=== PATIENT | female | born 1985 | race Caucasian/White ===

== ENCOUNTER 2017-12-22 08:08 | Emergency (ER) | payer SELFPAY ==
[~2017-12-22] VITALS: Ht 157.5 cm; Wt 56.0 kg
[~2017-12-22 08:08] MED LIST: OXYC1SOL5 PO; PRENCAP10 PO
[2017-12-22 08:17] VITALS: BP 122/65; PULSE 66; RESP 16; TEMP 98.2; O2SAT 100
[2017-12-22 08:33] VITALS: BP 133/77; PULSE 70; RESP 17; TEMP 98.5; O2SAT 100
[2017-12-22] MEDS ORDERED: SODIUM CHLORIDE 0.9% FLUSH 10 ML FLUSH IVF PRN (09:00)
[2017-12-22] MEDS ORDERED: ONDANSETRON HCL 4 MG/2 ML VIAL IVP ONE (09:00)
[2017-12-22] MEDS ORDERED: SODIUM CHLOR 0.9% 1000 ML INJ 1,000 ML IV ONE (09:00)
[2017-12-22] MEDS ORDERED: MECLIZINE HCL 25 MG TAB PO ONE (09:00)
[2017-12-22 09:20] VITALS: BP 133/77; PULSE 73; RESP 17; TEMP 98.5; O2SAT 100
--- NOTE | 2017-12-22 09:46 | RADRPT ---
EXAM DATE/TIME: 12/22/2017 09:18 [facility] COMPARISON: No previous studies available for comparison. INDICATIONS : Palpitations. MEDICAL HISTORY : None. SURGICAL HISTORY : None. ENCOUNTER: Initial ACUITY: 2 days PAIN SCORE: 0/10 LOCATION: Bilateral chest FINDINGS: A single view of the chest demonstrates the lungs to be symmetrically aerated without evidence of mas s, infiltrate or effusion. The cardiomediastinal contours are unremarkable. Osseous structures are intact. CONCLUSION: No evidence of acute cardiopulmonary disease. Justin Werner MD on December 22, 2017 at 9:44 Board Certified Radiologist. This report was verified electronically.
[2017-12-22 10:04] LABS: AUTOMATED NEUTROPHIL # 3.4 TH/MM3 (1.8-7.7); BASOPHIL # 0.1 TH/MM3 (0-0.2); BASOPHIL % 1.1 % (0.0-2.0); EOSINOPHIL # 0.1 TH/MM3 (0-0.4); EOSINOPHIL % 1.2 % (0.0-4.0); HEMATOCRIT 42.1 % (35.0-46.0); LYMPH % 24.2 % (9.0-44.0); LYMPHOCYTE # 1.3 TH/MM3 (1.0-4.8); MEAN CELL VOLUME 88.7 FL (80.0-100.0); MEAN CORPUSCULAR HEMOGLOBIN 29.6 PG (27.0-34.0); MEAN CORPUSCULAR HGB CONC 33.3 % (32.0-36.0); MEAN PLATELET VOLUME 9.7 FL (7.0-11.0); MONO % 8.1 % (0.0-8.0); MONOCYTE # 0.4 TH/MM3 (0-0.9); NEUT % 65.4 % (16.0-70.0); PLATELET COUNT 232 TH/MM3 (150-450); RED BLOOD COUNT 4.74 MIL/MM3 (4.00-5.30); RED CELL DISTRIBUTION WIDTH 13.7 % (11.6-17.2); WHITE BLOOD COUNT 5.2 TH/MM3 (4.0-11.0)
[2017-12-22 10:16] LABS: ALBUMIN 4.3 GM/DL (3.4-5.0); AST (GOT) 17 U/L (15-37); BICARBONATE 25.2 MEQ/L (21.0-32.0); BLOOD UREA NITROGEN 11 MG/DL (7-18); CHLORIDE 105 MEQ/L (98-107); CREATININE 0.79 MG/DL (0.50-1.00); GLOMERULAR FILTRATION RATE 84 ML/MIN (>89); GLUCOSE,RANDOM 109 MG/DL (74-106); SODIUM (NA) 139 MEQ/L (136-145)
[2017-12-22 10:17] LABS: ALT (GPT) 28 U/L (10-53); INTERNATIONAL NORMALIZED RATIO 1.1 RATIO; PROTHROMBIN TIME - PATIENT 10.9 SEC (9.8-11.6)
[2017-12-22 10:21] LABS: ALKALINE PHOSPHATASE 39 U/L (45-117); TOTAL BILIRUBIN ADULT 0.7 MG/DL (0.2-1.0); TOTAL PROTEIN 7.8 GM/DL (6.4-8.2); TROPONIN I LESS THAN 0.02 NG/ML (0.02-0.05)
[2017-12-22] MEDS ORDERED: IOHEXOL 350 MG/ML 10 ML VIAL (for RAD DIAG) IVCONTRAST ONE (10:22)
--- NOTE | 2017-12-22 10:59 | RADRPT ---
EXAM DATE/TIME: 12/22/2017 10:13 [facility] COMPARISON: No previous studies available for comparison. INDICATIONS : Dizzy for 2 weeks, prior history of vertigo RADIATION DOSE: 56.35 CTDIvol (mGy) MEDICAL HISTORY : None SURGICAL HISTORY : None. ENCOUNTER: Initial ACUITY: 2 weeks PAIN SCALE: 0/10 LOCATION: cranial TECHNIQUE: Multiple contiguous axial images were obtained of the head. Using automated exposure control and adj ustment of the mA and/or kV according to patient size, radiation dose was kept as low as reasonably a chievable to obtain optimal diagnostic quality images. DICOM format image data is available electro nically for review and comparison. FINDINGS: CEREBRUM: The ventricles are normal for age. No evidence of midline shift, mass lesion, hemorrhage or acute in farction. No extra-axial fluid collections are seen. POSTERIOR FOSSA: The cerebellum and brainstem are intact. The 4th ventricle is midline. The cerebellopontine angle i s unremarkable. EXTRACRANIAL: The visualized portion of the orbits is intact. SKULL: The calvaria is intact. No evidence of skull fracture. CONCLUSION: 1. No acute intracranial abnormality identified. Toñito Nieves MD on December 22, 2017 at 10:55 Board Certified Radiologist. This report was verified electronically.
--- NOTE | 2017-12-22 11:26 | RADRPT ---
EXAM DATE/TIME: 12/22/2017 10:13 [facility] COMPARISON: No previous studies available for comparison. INDICATIONS : Dizziness for 2 weeks, history of vertigo IV CONTRAST: 99 cc Omnipaque 350 (iohexol) IV ; Cumulative dose for multiple exams. RADIATION DOSE: 8.35 CTDIvol (mGy) ; Combined studies MEDICAL HISTORY : None SURGICAL HISTORY : None. ENCOUNTER: Initial ACUITY: 2 weeks PAIN SCALE: 0/10 LOCATION: cranial TECHNIQUE: Volumetric scanning was performed using a multi-row detector CT scanner. The data was post processed with a variety of visualization algorithms including full volume maximum intensity projection, multi -planar sliding thin slab reformation, curved planar reformation, and surface rendering techniques. Using automated exposure control and adjustment of the mA and/or kV according to patient size, radiat ion dose was kept as low as reasonably achievable to obtain optimal diagnostic quality images. DICO M format image data is available electronically for review and comparison. FINDINGS: There is excellent visualization of the major intracranial arteries out to the second-order branch ve ssels. There is no evidence for aneurysm, vessel truncation or stenosis, and no evidence for vascula r malformation. CONCLUSION: 1. Negative examination. Toñito Nieves MD on December 22, 2017 at 11:20 Board Certified Radiologist. This report was verified electronically.
[2017-12-22] MEDS ORDERED: diphenhydrAMINE HCL 50 MG/ML VIAL IV PUSH ONE (11:30)
[2017-12-22] MEDS ORDERED: METOCLOPRAMIDE HCL 10 MG TAB PO ONE (11:30)
[2017-12-22 11:57] VITALS: BP 111/79; PULSE 72; RESP 18; O2SAT 99
--- NOTE | 2017-12-22 14:05 | RADRPT ---
EXAM DATE/TIME: 12/22/2017 10:13 [facility] COMPARISON: CT BRAIN W/O CONTRAST, December 22, 2017, 10:13. CTA BRAIN W 3D RECON, December 22, 2017, 10:13. INDICATIONS : Dizziness for 2 weeks, prior history of vertigo IV CONTRAST: 99 cc Omnipaque 350 (iohexol) IV ; Cumulative dose for multiple exams. RADIATION DOSE: 8.35 CTDIvol (mGy) ; Combined studies MEDICAL HISTORY : None SURGICAL HISTORY : None. ENCOUNTER: Initial ACUITY: 2 weeks PAIN SCALE: 0/10 LOCATION: neck Elevated flow velocities and ICA/CCA ratios have been found to correlate with increased degrees of vessel stenosis, calculated as percentage of diameter relative to a normal segment of distal ICA/CCA. TECHNIQUE: Volumetric scanning was performed using a multirow detector CT scanner. The data was post processed with a variety of visualization algorithms including full-volume maximum intensity projection, multip lanar sliding thin-slab reformation, curved-planar reformation, and surface-rendering techniques. Us ing automated exposure control and adjustment of the mA and/or kV according to patient size, radiatio n dose was kept as low as reasonably achievable to obtain optimal diagnostic quality images. DICOM f ormat image data is available electronically for review and comparison. FINDINGS: AORTIC ARCH: There is a three-vessel origin of the great vessels from the aorta. No evidence of ostial narrowing. RIGHT CAROTID: The common carotid artery is intact. The carotid bulb has a normal configuration without ulceration o r narrowing. The internal carotid artery lumen is smooth without stenosis. The external carotid syed ry is intact. LEFT CAROTID: The common carotid artery is intact. The carotid bulb has a normal configuration without ulceration or narrowing. The internal carotid artery lumen is smooth without stenosis. The external carotid ar janet is intact. VERTEBRALS: Lethargy rior is dominant. No stenotic lesions are seen. CONCLUSION: No acute abnormality. Justin Werner MD on December 22, 2017 at 14:02 Board Certified Radiologist. This report was verified electronically.
--- NOTE | 2017-12-22 14:24 | PD ---
HPI Chief Complaint: Dizziness Time Seen by Provider: 08:38 Travel History International Travel<30 days: No Contact w/Intl Traveler<30days: No Traveled to known affect area: No History of Present Illness HPI Patient is a 32 year old female who comes in complaining of dizziness for the past 3-4 days. She says that any movement brings on the dizziness. She says it causes nausea and she feels very off balance. She says she feels some pressure in the back of her neck. She denies headache or fevers. She denies any head injuries. She says she has had an episode of this before, but it did not last as long. She does report that she has been working out a lot lately and not eating very much. Severity is mild to moderate. PFSH Past Medical History Musculoskeletal: Yes (BULGING DISCS) Neurologic: Yes (VERTIGO) Tetanus Vaccination: Unknown Influenza Vaccination: No ?: Not LMP: 3 WEEKS AGO Past Surgical History Section: Yes Tonsillectomy: Yes Social History Alcohol Use: Yes (occ) Tobacco Use: No Substance Use: No Allergies-Medications (Allergen,Severity, Reaction): Coded Allergies: No Known Allergies (Verified Adverse Reaction, Unknown, 12/22/17) Reported Meds & Prescriptions Reported Meds & Active Scripts Active No Active Prescriptions or Reported Medications Review of Systems Except as stated in HPI: all other systems reviewed are Neg General / Constitutional: No: Fever, Chills Eyes: No: Blurred Vision HENT: Positive: Vertigo Cardiovascular: No: Chest Pain or Discomfort Respiratory: No: Shortness of Breath Gastrointestinal: Positive: Nausea, No: Vomiting Genitourinary: No: Dysuria Musculoskeletal: No: Myalgias Skin: No Rash, No Change in Pigmentation Neurologic: Positive: Dizziness, No: Weakness Physical Exam Narrative GENERAL: Awake and alert, no acute distress. SKIN: Focused skin assessment warm/dry. No wounds or signs of infection. HEAD: Atraumatic. Normocephalic. EYES: Pupils equal and round and reactive. No scleral icterus. Extraocular movements intact. ENT: Mucous membranes pink and moist. NECK: Trachea midline. No JVD. CARDIOVASCULAR: Regular rate and rhythm. No murmur appreciated. RESPIRATORY: No accessory muscle use. Clear to auscultation. Breath sounds equal bilaterally. GASTROINTESTINAL: Abdomen soft, non-tender, nondistended. MUSCULOSKELETAL: No obvious deformities. No clubbing. No cyanosis. No edema. NEUROLOGICAL: Awake and alert. No obvious cranial nerve deficits. Motor grossly within normal limits. Normal speech. Normal cerebellar function testing. PSYCHIATRIC: Appropriate mood and affect; insight and judgment normal. Data Data Last Documented VS Vital Signs Date Time Temp Pulse Resp B/P (MAP) Pulse Ox O2 Delivery O2 Flow Rate FiO2 12/22/17 11:57 72 18 111/79 (90) 99 Room Air 12/22/17 09:20 98.5 Orders Orders Electrocardiogram (12/22/17 09:00) Ed Urine Pregnancytest Poc (12/22/17 09:00) Complete Blood Count With Diff (12/22/17:00) Comprehensive Metabolic Panel (12/22/17:00) Troponin I (12/22/17:00) Act Partial Throm Time (Ptt) (12/22/17 09:00) Prothrombin Time / Inr (Pt) (12/22/17 09:00) Chest, Single Ap (12/22/17 09:00) Ct Brain W/O Iv Contrast(Rout) (12/22/17 09:00) Ecg Monitoring (12/22/17 09:00) Iv Access Insert/Monitor (12/22/17:00) Oximetry (12/22/17 09:00) Meclizine (Antivert) (12/22/17 09:00) Ondansetron Inj (Zofran Inj) (12/22/17 09:00) Sodium Chloride 0.9% Flush (Ns Flush) (12/22/17 09:00) Sodium Chlor 0.9% 1000 Ml Inj (Ns 1000 M (12/22/17 09:00) Cta Brain W Iv Contrast W 3d (12/22/17 ) Cta Neck W Iv Contrast W 3d (12/22/17 ) Iohexol 350 Inj (Omnipaque 350 Inj) (12/22/17 10:22) Metoclopramide (Reglan) (12/22/17 11:30) Diphenhydramine Inj (Benadryl Inj) (12/22/17 11:30) Labs Laboratory Tests Test 12/22/17 09:35 12/22/17 09:45 White Blood Count 5.2 TH/MM3 Red Blood Count 4.74 MIL/MM3 Hemoglobin 14.0 GM/DL Hematocrit 42.1 % Mean Corpuscular Volume 88.7 FL Mean Corpuscular Hemoglobin 29.6 PG Mean Corpuscular Hemoglobin Concent 33.3 % Red Cell Distribution Width 13.7 % Platelet Count 232 TH/MM3 Mean Platelet Volume 9.7 FL Neutrophils (%) (Auto) 65.4 % Lymphocytes (%) (Auto) 24.2 % Monocytes (%) (Auto) 8.1 % Eosinophils (%) (Auto) 1.2 % Basophils (%) (Auto) 1.1 % Neutrophils # (Auto) 3.4 TH/MM3 Lymphocytes # (Auto) 1.3 TH/MM3 Monocytes # (Auto) 0.4 TH/MM3 Eosinophils # (Auto) 0.1 TH/MM3 Basophils # (Auto) 0.1 TH/MM3 CBC Comment DIFF FINAL Differential Comment Prothrombin Time 10.9 SEC Prothromb Time International Ratio 1.1 RATIO Activated Partial Thromboplast Time 26.6 SEC Blood Urea Nitrogen 11 MG/DL Creatinine 0.79 MG/DL Random Glucose 109 MG/DL Total Protein 7.8 GM/DL Albumin 4.3 GM/DL Calcium Level 9.0 MG/DL Alkaline Phosphatase 39 U/L Aspartate Amino Transf (AST/SGOT) 17 U/L Alanine Aminotransferase (ALT/SGPT) 28 U/L Total Bilirubin 0.7 MG/DL Sodium Level 139 MEQ/L Potassium Level 3.9 MEQ/L Chloride Level 105 MEQ/L Carbon Dioxide Level 25.2 MEQ/L Anion Gap 9 MEQ/L Estimat Glomerular Filtration Rate 84 ML/MIN Troponin I LESS THAN 0.02 NG/ML MDM Medical Decision Making Medical Screen Exam Complete: Yes Emergency Medical Condition: Yes Medical Record Reviewed: Yes Interpretation(s) ECG shows normal sinus rhythm at a rate of 73, no ST elevation or depression, normal intervals Differential Diagnosis Electrolyte abnormality versus vertigo versus dehydration versus ICH Narrative Course Patient is a 32-year-old female who comes in complaining of dizziness. Exam shows no neurologic abnormalities. IV established, labs sent. Labs show no acute abnormalities. CT of the head performed shows no acute abnormalities. CTA of the head and neck performed showed no acute abnormalities. Last [address] 12/22/17 0900 Signed Impressions: Service Date/Time: Friday, December 22, 2017 10:13 - CONCLUSION: 1. No acute intracranial abnormality identified. Toñito Nieves MD Chest X-Ray 12/22/17 0900 Signed Impressions: Service Date/Time: Friday, December 22, 2017 09:18 - CONCLUSION: No evidence of acute cardiopulmonary disease. Justin Werner MD Neck CTA 12/22/17 0000 Signed Impressions: Service Date/Time: Friday, December 22, 2017 10:13 - CONCLUSION: No acute abnormality. Justin Werner MD Head CTA 12/22/17 0000 Signed Impressions: Service Date/Time: Friday, December 22, 2017 10:13 - CONCLUSION: 1. Negative examination. Toñito Nieves MD Patient given IV fluids, Zofran, meclizine. She reports some improvement, but the dizziness is still there. She was then given Reglan and Benadryl and says she is feeling better. She will be given a prescription for Reglan and advised to take Benadryl as needed [id number]. Advised follow-up with a primary care doctor. Advised return to the ED as needed for any worsening symptoms. Diagnosis Primary Impression: Dizziness Referrals: [facility] call for appointment Patient Instructions: Dizziness (ED), General Instructions Additional Instructions: Drink plenty of fluids. Take Reglan or Benadryl as needed for symptoms. Follow -up with a primary doctor. Return to the ED as needed for any worsening symptoms. Scripts Metoclopramide (Reglan) 10 Mg Tab 10 MG PO QID Y for DIZZINESS, #12 TAB 0 Refills Prov: Elena Rouse MD 12/22/17 Disposition: 01 DISCHARGE HOME Condition: Stable Elena Rouse MD Dec 22, 2017 14:24
[2017-12-22] MEDS ORDERED: REGL10TA5 PO (14:31)
[2017-12-22 14:45] VITALS: BP 102/69
--- NOTE | 2017-12-22 16:08 | EKG ---
Date Performed: 12/22/2017 Time Performed: 09:24:37 PTAGE: 32 years EKG: Sinus rhythm NORMAL ECG NO PREVIOUS TRACING DOCTOR: Beck Shaw Interpretating Date/Time 12/22/2017 16:07:29
== END 2017-12-22 14:50 | disposition home or self-care (01) ==
LOC: NEPE 08:08
DX: R42 Dizziness and giddiness (principal); R11.0 Nausea; M51.9 Unspecified thoracic, thoracolumbar and lumbosacral intervertebral disc disorder
CPT/HCPCS: 70450; 70496; 70498; 71045; 80053; 84484; 84703; 85025; 85610; 85730; 93005; 96361; 96374; 96375; 99285; J1200; J2405; J7030; Q9967